=== PATIENT | female | born 1950 | race Caucasian/White ===

== ENCOUNTER → 2020-07-03 11:30 | Outpatient (BNV) | payer MEDICARE, OTHER, SELFPAY | PROVIDERS: PCP Nurse Practitioner Family; Visit Provider Internal Medicine Medical Oncology | DX: C50.212 Malignant neoplasm of upper-inner quadrant of left female breast (principal); D69.1 Qualitative platelet defects | CPT/HCPCS: 99213; 99214 ==

== ENCOUNTER 2020-11-23 11:41 | Outpatient (REF) | payer MEDICARE, OTHER, SELFPAY ==
[2020-11-27 13:46] LABS: CA 27.29 53 U/mL (<38)
== END 2020-11-23 11:42 | disposition home or self-care (01) ==
LOC: HO.LAB 11:41
PROVIDERS: PCP Nurse Practitioner Family; Visit Provider Internal Medicine Medical Oncology
DX: C50.919 Malignant neoplasm of unspecified site of unspecified female breast (principal)
CPT/HCPCS: 36415; 86300

== ENCOUNTER 2020-12-18 07:59 | Outpatient (REF) | payer MEDICARE, SELFPAY ==
--- NOTE | ~2020-12-18 | PE_ITS ---
EXAMINATION: Fluorine-18 FDG PET/CT Scan CLINICAL INDICATION: Subsequent treatment management. Restaging following prior lumpectomy after diagnosis of left breast cancer April,. PROCEDURE: 66 minutes following the intravenous administration of 15.5 mCi of fluorine 18 FDG, images from the base of the skull to the mid thighs were obtained using a combined PET/CT scanner with CT scan based attenuation correction. No oral contrast was administered. No intravenous contrast was administered. Transverse, coronal, sagittal, and volume reconstruction projections were obtained. The patient's blood glucose as determined by a finger stick, was 98 mg/dl immediately prior to injection. Total CT exam dose-length product 868.58 mGy-cm * These CT images were obtained using dose optimization techniques as appropriate, variously including the following: Automated exposure control * Adjustment of mA and/or kV according to patient size (this includes techniques or standardized protocols for targeted exams where dose is matched to indication/reason for exam; i.e. extremities or head) * Use of iterative reconstruction technique COMPARISON: No relevant prior imaging studies are available for comparison. FINDINGS: (Slice numbers described in this report are numbered superiorly to inferiorly with slice #1 in the head) NECK AND VISUALIZED HEAD: No foci of abnormal FDG activity are noted. The distribution of FDG activity is physiological. There is no cervical lymphadenopathy. There is a 0.4 cm hypodense left thyroid nodule, slice 42/267. A second 0.3 cm hypodense nodule is probably present, but less well delineated in the right thyroid lobe, slice 47/267. These are too small to be characterized on the FDG PET images. THORAX: No foci of abnormal FDG activity are present in the chest. A 0.6 cm right middle lobe nodule, slice 104/349 and a 0.7 cm right lower lobe nodule are noted, both too small to be characterized on the FDG PET images. No additional pulmonary nodules are visualized. There is no pleural or pericardial fluid, or pneumothorax. There is no mediastinal, supraclavicular, or axillary lymphadenopathy. ABDOMEN AND PELVIS: No foci of abnormal FDG activity are present in the abdomen or pelvis. There is mild diffuse FDG activity present throughout the gastrointestinal tract without a suspicious focal component. There is diverticulosis without evidence of diverticulitis. The hollow viscera are otherwise unremarkable. The liver and spleen are unremarkable. The gallbladder has been resected and there are metallic surgical clips in the gallbladder bed. There is a hypodense cyst laterally in the lower pole of the left kidney and this is markedly FDG photopenic. The kidneys are otherwise unremarkable. The adrenal glands and pancreas are unremarkable. The pelvic organs are unremarkable. There is no retroperitoneal, mesenteric, pelvic or inguinal lymphadenopathy. MUSCULOSKELETAL: There is mild diffuse FDG activity in both shoulders, likely arthritic in etiology. There is mildly increased activity in the left posterior elements at L5-S1, probably due to facet arthropathy. There are mild degenerative changes in the spine but no suspicious sclerotic or lytic lesions are visualized. VASCULAR: There are dense calcifications in the region of the aortic valve. No other significant vascular abnormalities are noted. PET/PET CT fusion skull to thigh IMPRESSION: 1. Two subcentimeter pulmonary nodules are noted as described above. These are too small to be characterized on the FDG PET images. Correlation with a diagnostic CT scan of the chest is recommended. 2. Two small subcentimeter hypodense thyroid nodules are visualized comments described above. These are too small to be characterized on the FDG PET images, and because of their small size probably do not require further follow-up. 3. No additional abnormalities suspicious for metastatic or other malignant lesions are noted.
== END 2020-12-18 08:00 | disposition home or self-care (01) ==
LOC: HO.PET 07:59
PROVIDERS: PCP Nurse Practitioner Family; Visit Provider Internal Medicine Medical Oncology
DX: Z13.89 Encounter for screening for other disorder (principal)

== ENCOUNTER 2021-03-02 09:59 | Outpatient (REF) | payer MEDICARE, SELFPAY ==
--- NOTE | ~2021-03-02 | CT_ITS ---
EXAMINATION: CT CHEST WITHOUT CONTRAST CLINICAL INFORMATION: Pulmonary nodule follow-up. History of breast cancer. COMPARISON: Previous chest x-ray December [address] November 2020 TECHNIQUE: Multidetector volumetric CT imaging of the chest was done. Axial MIP volume rendering provided. Sagittal and coronal reformatted images were obtained. This CT examination was performed using dose optimization techniques as appropriate, variously including the following: *Automated exposure control *Adjustment of mA and/or kV according to patient size (this includes techniques or standardized protocols for targeted exams where dose is matched to indication/reason for exam; i.e. extremities or head) *Use of iterative reconstruction technique DLP: 185 mGy-cm FINDINGS: CHIEF DIGITAL MEDIA OFFICER: Unremarkable LUNGS: There is a 2 mm peripheral right upper lobe not nodule axial image 154 series 7 that is calcified. There is a 2 mm peripheral right upper lobe noncalcified nodule axial image 155 series 7 . There is a 5 mm right middle lobe noncalcified nodule axial image 319 series 7. This is stable from the previous PET/CT scan. No other pulmonary nodule is seen. MEDIASTINUM: The thoracic aorta is upper normal in size. The ascending thoracic aorta measures 4 cm. There is significant aortic valve calcification. There is no coronary artery calcification. The heart does not appear enlarged. There is no pericardial effusion. There are no enlarged hilar or mediastinal lymph nodes. The visualized thyroid gland is unremarkable. PLEURA: There is no pleural effusion. No pleural mass or thickening. AXILLA: No chest wall mass or enlarged axillary lymph nodes are seen. UPPER ABDOMEN: The gallbladder has been removed. OSSEOUS STRUCTURES: There are degenerative changes of the spine. CT/CT chest wo con IMPRESSION: Stable 5 mm right middle lobe pulmonary nodule. No right lower lobe nodule seen. Two 2 mm right upper lobe nodules, one of which is calcified. Significant aortic valve calcification. Upper normal-size ascending thoracic aorta. Correlation with clinical exam to exclude aortic stenosis recommended. Fleischner guidelines were followed.
== END 2021-03-02 10:00 | disposition home or self-care (01) ==
LOC: HO.CT 09:59
PROVIDERS: Visit Provider Nurse Practitioner Family
DX: R91.1 Solitary pulmonary nodule (principal)
CPT/HCPCS: 71250

== ENCOUNTER 2021-12-16 15:07 | Outpatient (REF) | payer MEDICARE, OTHER, SELFPAY ==
--- NOTE | ~2021-12-16 | US_ITS ---
EXAMINATION: US DIAGNOSTIC ULTRASOUND BREAST, RIGHT CLINICAL INFORMATION: Superficial palpable nodule peripheral upper inner right breast. Personal history contralateral left breast cancer approximately 2 years ago. Prior imaging at outside institution. COMPARISON: None. TECHNIQUE: Ultrasound of the right breast is targeted to the area of clinical concern periphery upper inner right breast. Patient is able to point to the area time of imaging. Grayscale imaging and color Doppler are performed without and with harmonics. FINDINGS: There is a spindle-shaped hypoechoic intradermal lesion at site of palpable concern periphery upper inner right breast measuring approximately 1.0 x 0.3 x 0.9 cm. There is some scant peripheral color flow. No subdermal extension. No edema tracking in soft tissue planes. Results are discussed with the patient at time of visit. The palpable concern corresponds to an intradermal lesion, likely sebaceous or epidermal cyst. US/US breast RT complete IMPRESSION: Intradermal spindle-shaped lesion at site of palpable concern likely sebaceous or epidermal cyst. ASSESSMENT: BI-RADS 2: Benign RECOMMENDATION: 1. Patient should be managed based on the clinical impression. The lesion is amenable to surgical excision particularly if increasing. 2. Otherwise, routine annual screening mammography. This patient's information was entered into a reminder system with a target due date for their next mammogram.
== END 2021-12-16 15:08 | disposition home or self-care (01) ==
LOC: HO.MAMMO 15:07
PROVIDERS: Visit Provider Internal Medicine Medical Oncology
DX: N60.01 Solitary cyst of right breast (principal)
CPT/HCPCS: 76641

== ENCOUNTER 2024-05-18 09:25 | Outpatient (REF) | payer MEDICARE, OTHER, SELFPAY ==
--- OUTSIDE RECORDS SUMMARY | 2024-05-18 09:45 | XMS_ITS | Encounter Summary ---
Author Organization [employer] Address [address] [place] [address] [address] [place] [address] Care Team Providers Care Napkin Band Wrapper Name Role Phone Deepika Serna Primary Care Provider Unavailable Virginia Belcher DO Primary Care Provider [phone] Encounter Details Date Type Department Care Team (Latest Contact Info) Description 04/26/2019 Abstract [facility]VERSION[facility] Dental, Provider, DDS Social History Tobacco Use Types Packs/Day Years Used Date Smoking Tobacco: Never Assessed Comments Unknown Sex and Gender Information Value Date Recorded Sex Assigned at Female 04/24/2022 1:50 PM EST Legal Sex Female 8:32 PM EDT Gender Identity Female 04/24/2022 1:50 PM EST Sexual Orientation Straight 04/24/2022 1: 50 PM EST documented as of this encounter Plan of Treatment Not on file documented as of this encounter Visit Diagnoses Not on filedocumented in this encounter Care Teams Napkin Band Wrapper Relationship Specialty Start Date End Date Deepika Serna FNP PCP - General Family Medicine 04/15/22 12/23/23 Virginia Belcher DO [address] [facility] [place] [address] PCP - General Family Medicine 12/24/23 documented as of this encounter
--- OUTSIDE RECORDS SUMMARY | 2024-05-18 09:45 | XMS_ITS | Encounter Summary ---
Author Organization [employer] Address [address] [place] [address] [address] [place] [address] Care Team Providers Care Security Supervisor Name Role Phone Deepika Serna Primary Care Provider Unavailable Virginia Belcher DO Primary Care Provider [phone] Encounter Details Date Type Department Care Team (Latest Contact Info) Description 08/10/2018 Abstract [facility]VERSION[facility] Dental, Provider, DDS Social [...] on filedocumented in this encounter Care Teams Security Supervisor Relationship Specialty Start Date End Date Deepika Serna FNP PCP - General Family Medicine 04/15/22 12/23/23 Virginia Belcher DO [address] [facility] [place] [address] PCP - General Family Medicine 12/24/23 documented as of this encounter
--- OUTSIDE RECORDS SUMMARY | 2024-05-18 09:45 | XMS_ITS | Encounter Summary ---
Author Organization [employer] Address [address] [place] [address] Care Team Providers Care Process Improvement Specialist Name Role Phone Deepika Serna Primary Care Provider Unavailable Virginia Belcher DO Primary Care Provider [phone] Encounter Details Date Type Department Care Team (Late st Contact Info) Description 05/07/2023 Orders Only [facility] [address] [place] [address] Deepika Serna FNP Social History Tobacco Use Types Packs/Day Years Used Date Smoking Tobacco: Never Smokeless Tobacco: Never Alcohol Use Standard Drinks/Week Comments Never 0 (1 standard drink = 0.6 oz pur e alcohol) Housing Stability Answer Date Recorded What is your housing situation today? I have demetrius farr 01/27/[address] you li ve. Do you have problems with any of the following? I am not sure 01/27/2023 Food Insecurity Answer Date Recorded Within the past 12 months, y ou worried that your food would run out before you got money to buy more: Never True 01/27/2023 Within the past 12 months,th e food you bought just didn't last and you didn't have enough money to get more: Never True Transportation Answer Date Recorded In the past 12 months, has l ack of transportation kept you from medical appts, meetings, work or from getting things needed for daily living? No 01/27/2023 Utilities Answer Date Recorded In the past 12 months, has t he electric, gas, oil or water company threatened to shut off services in your home? No 01/27/2023 Depression Answer Date Recorded Patient Health Questionnaire-2 Score 1 06/23/2022 Education Answer Date Recorded What is the highest level of school you have completed or the highest degree you have received? Master's degree (e.g., MA, MS, David, MEd, [employer], [employer]) 06/23/2022 Comments Unknown Sex and Gender Information Value Date Recorded Sex Assigned at Female 04/24/2022 1:50 PM EST Legal Sex Female 8:32 PM EDT Gender Identity Female 04/24/2022 1:50 PM EST Sexual Orientation Straight 04/24/2022 1: 50 PM EST Occupation Industry Job Start Date Job End Date Retired Not on file Not on file Not on file documented as of this encounter Plan of Treatment Not on file documented as of this encounter Procedures Procedure Name Priority Date/Time Associated Diagnosis Comments BI MAMMOGRAM SCREENING TOMOSYNTHESIS BILATERAL Routine 04/30/2023 documented in this encounter Results * BI Mammogram Screening Tomosynthesis Bilateral (04/30/2023) Anatomical Region Laterality Modality Breast Bilateral Mammography Deepika DECKER IMG BI PROCEDURES Peggy l Result documented in this encounter Visit Diagnoses Not on filedocumented in this encounter Care Teams Process Improvement Specialist Relationship Specialty Start Date End Date Deepika Serna FNP PCP - General Family Medicine 04/15/22 12/23/23 Virginia Belcher DO [address] [place] [id number] PCP - General Family Medicine 12/24/23 documented as of this encounter
--- OUTSIDE RECORDS SUMMARY | 2024-05-18 09:45 | XMS_ITS | Clinical Summary ---
Author Organization [employer] Address [address] [place] [address] [address] [place] [address] Care Team Providers Care School Librarian Name Role Phone Virginia Belcher DO Primary Care Provider [phone] Allergies Active Allergy Reactions Criticality Noted Date Comments Amoxicillin-Pot Clavulanate Low 05/28/2020 Other reaction(s): inflammed organs organomegaly Aspirin Low 07/27/2017 Other reaction(s): platelet dysfunction storage pool disorder Platelet dysfunction Atorvastatin Low 02/26/2022 Other reaction(s): increase lft Molds & Smuts 10/09/2023 Nsaids Low 06/08/2022 Other reaction(s): platelet dysfunction Pollen Extract 10/09/2023 Other Reaction(s): Airborne allergies - trees Simvastatin Low 06/08/2022 Other reaction(s): Myalgias, Sore throat Tramadol Hives,Itching Low 02/27/2017 Other reaction(s): Other (See Comments), skin crawling Bugs crawling on skin sensation Other reaction(s): Other (See Comments) Bugs crawling on skin sensation Medications amitriptyline (Elavil) 25 MG tablet Take one tablet by mouth at bedtime, as needed for insomnia. 03/07/20 22 Active aspirin 81 MG EC tablet Take 81 mg by mouth. 05/21/19 23 Active DULoxetine (Cymbalta) [address] capsule Take 120 mg by mouth at bedtime. 11/19/19 22 Active letrozole (Femara) 2.5 MG chemo tablet Take 2.5 mg by mouth in the morning. 03/25/20 22 Active LORazepam (Ativan) 0.5 MG tablet Take one tablet by mouth three times a day as needed for anxiety or insomnia. 03/25/20 22 Active topiramate (Topamax) 25 MG tablet TAKE 1 1/2 TABLETS BY MOUTH DAILY BEFORE BED 01/15/20 22 Active gabapentin (Neurontin) 600 MG tablet TAKE 1 TABLET BY MOUTH BEFORE BED 05/01/19 23 Active Calcium Carb-Cholecalcifer ol (CALTRATE 600+D3 PO) Take 2 tablets by mouth 2 times daily. Active albuterol 108 (90 Base) MCG/ACT inhalerIndications :Acute bronchospasm inhale 2 PUFFS every 4 TO 6 hours needed directed 8.5 g 1 11/26/19 23 Active chlorhexidine (Peridex) 0.12 % solution fill cup to1/2 OUNCE line SWISH IN MOUTH FOR 30 seconds THEN spit OUT, USE TWICE daily AFTER breakfast AND AT bedtime 473 mL 3 12/12/19 23 Active desmopressin (DDAVP) 0.01 % solutionIndication s:Platelet dysfunction (CMS/HCC),Antiplat elet or antithrombotic long-term use,Bleeding from the nose Administer 1 spray (10 mcg) into one nostril 2 times daily. As needed for acute nose bleeds. 5 mL 12 05/22/19 24 025 Active triamcinolone (Kenalog) 0.5 % ointment Apply THIN FILM topically TO AFFECTED AREA 2 (two) times a week. 08/05/19 24 Active levothyroxine (Synthroid, Levoxyl) 25 MCG tablet TAKE 1 TABLET BY MOUTH DAILY IN THE MORNING ON AN EMPTY stomach 90 tablet 2 11/27/19 24 Active amoxicillin (Amoxil) 500 MG capsule 11/11/19 24 Active meloxicam (Mobic) 15 MG tabletIndications: Cervicalgia Take 1 tablet (15 mg) by mouth in the morning. Take with food. 28 tablet 5 02/10/20 24 Active atenolol (Tenormin) 25 MG tablet TAKE 1 TABLET BY MOUTH ONCE DAILY 90 tablet 3 02/12/20 24 Active esomeprazole (NexIUM) [address] capsule Take 40 mg by mouth before breakfast. 12/24/19 22 Active Prasterone (Intrarosa) 6.5 MG insert Insert 1 suppository into the vagina Once per day. Active rosuvastatin (Crestor) 10 MG tabletIndications: H/O prosthetic aortic valve replacement,Aneury sm of ascending aorta without rupture (CMS/HCC) Take 2 tablets (20 mg) by mouth Once per day. Per sheepskin pickler 180 tablet 3 03/10/20 24 Active butalbital-acetami nophen-caffeine 50-325-40 MG tabletIndications: Migraine with aura and without status migrainosus, not intractable TAKE 1 TABLET BY MOUTH AT ONSET OF HEADACHE, MAY REPEAT IN 4 hours. max OF 4 TABS IN 24 hours as needed 20 tablet 2 03/10/20 24 Active Active Problems Problem Noted Date Diagnosed Date Family hx of colon cancer 09/23/2023 Overview (09/23/2023): Last colonoscopy 2020 - only findings of hemorrhoids and diverticulosis. Given strong family hx in multiple 2nd cousins, Needs to have repeat colonoscopy 03/2025 Aneurysm of ascending aorta without rupture 05/29 Overview (06/24/2023): 41 mm AAA seen on echo from 05/2023. Recommend f/u UL 05/2024. S/P TAVR (transcatheter aortic valve replacement ) 05/20/2022 Overview (09/23/2023): Hx of Dyspnea on exertion w/u w/ echo revealed dx with severe aortic stenosis. S/p aortic valve replacement (TAVR) 05/20/22 Treated with Plavix x 12 months. Next echo will be 05/2024 Assessment & Plan (10/15/2022 10:54 AM EDT): Apr 2022- Underwent TAVR for severe aortic stenosis with Dr. Elie Huizar Carpal tunnel syndrome 04/04/2022 Cervicalgia 04/04/2022 Chronic fatigue 04/04/2022 Chronic sinusitis of both maxillary sinuses 08/2022 Essential hypertension 04/04/2022 Assessment & Plan (10/15/2022 10:58 AM EDT): Continue current medication; stable. BP: 122/72 Gastro-esophageal reflux disease without esophag itis 04/04/2022 Hyperlipidemia 04/04/2022 Hypothyroidism 04/04/2022 Lumbago with sciatica, unspecified side 04/04/19 23 Major depressive disorder 04/04/2022 Assessment & Plan (10/15/2022 10:57 AM EDT): Continue to follow with her current therapist. She reports that her medications are working well, denies any SI/HI. Migraine with aura 04/04/2022 Overview (09/23/2023): Managed with Fioricet once a week. NAFLD (nonalcoholic fatty liver disease) 023 Primary osteoarthritis involving multiple joints 04/04/2022 Pulmonary nodule 04/04/2022 Seasonal allergic rhinitis due to pollen 023 Osteopenia of both hips 02/26/2022 Overview (05/29/2022): Last Assessment & Plan: The patient has osteopenia with high FRAX score. I did inform her that she will benefit from antiresorptive medications but we do have to manage primary hyperparathyroidism first. Hyperparathyroidism 02/26/2022 Overview (04/13/2024): S/p parathyroidectomy 3- gland resection Elevated alkaline phosphatase level 02/26/2022 Overview (10/14/2023): Patient has elevated alkaline phosphatase bone specific alkaline phosphatase and GGT levels were in the reference range, serum alkaline phosphatase remain elevated and I suspect that this is due to her calcium levels, hyperparathyroidism, and osteopenia. - upcoming liver UL Invasive ductal carcinoma of left breast 022 Overview (04/13/2024): >>OVERVIEW FOR MALIGNANT NEOPLASM OF LEFT BREAST (CMS/HCC) WRITTEN ON 10/16/2022 7:59 AM BY BRIANNE COLINDRES Hx ductal carcinoma Stage 1 left breast 05/3020 S/p Lumpectomy with Dr. Echevarria Sees oncologist at [facility] Tika will continue with her own breast surveillance, follow up with oncologist and screening mammograms. Platelet dysfunction 08/19/2018 Overview (10/16/2022): Followed by heme/oncology. Atrophic vaginitis 07/28/2017 Overview (05/29/2022): Last Assessment & Plan: Tika will continue with new regimen of coconut oil, less aggressive washing and less/no use of soap. She will continue to experiment with timing/frequency of vaginal estrogen, balancing using only what she feels is needed with understanding that random use is not typically effective. Her current plan is to use perhaps once a week. She does not need refills at this time. Assessment & Plan (10/15/2022 10:59 AM EDT): Tika continues to use coconut oil, less washing and occasional use of vaginal estrogen. She reports she will continue on this regimen. Resolved Problems Problem Noted Date Diagnosed Date Resolved Date Acute cystitis with hematuria 06/03/2023 04/13/2024 Assessment & Plan (06/03/2023 4:54 PM EST): Patient presenting with frequency, urgency, dysuria and mild lower abdominal pain. Symptoms started 3 days ago. She has been drinking a good amount of water and tried her cream for atrophic vaginitis since symptoms present similarly for her, but this did not provide relief. Her last UTI was a few years ago but she does note that it felt similar to this episode. Mild discomfort with palpation of the lower abdomen. No CVA tenderness or fever. Urine dipstick showed 3+ leukocytes and blood, negative for nitrites. Urine is being sent out for culture. Sending Keflex 500 mg BID for 7 days. She understands to take the full course of antibiotics. Advised if any adverse reactions occur to stop and call the office or go to the ER for any signs of anaphylaxis. Aortic stenosis, severe 04/04/202208/29 Serum calcium elevated 04/04/202203/10 Encounters Date Type Department Care Team Description 03/25/[address] [address] Rebecca Goss RN 03/21/[address] [place] [address] Virginia Belcher DO Labs Only 03/18/2024 10:20 AM EST Office Visit [facility] [address] [place] [address] Kassie Pena FNP Hyperparathyroidism (CMS/HCC) (Primary Dx); Urinary frequency; Acquired hypothyroidism; Immunocompromised (CMS/HCC) 03/18/2024 Travel 03/10/2024 8:45 AM EST Office Visit [facility] MED[facility] [address] [place] [address] Virginia Belcher, Migraine with aura and without status migrainosus, not intractable (Primary Dx); H/O prosthetic aortic valve replacement; Aneurysm of ascending aorta without rupture (CMS/HCC); Immunization due; Invasive ductal carcinoma of left breast (CMS/HCC); Hyperparathyroidism (CMS/HCC); Platelet dysfunction (CMS/HCC); Atrophic vaginitis; Hypothyroidism, unspecified type; Essential hypertension 03/10/2024 Travel from Last 3 Months Immunizations Name Administration Dates Next Due Hep B, adult 09/17/2020,04/17/2020,03/20/2020 Influenza High-dose Quadriva lent Preservative Free 03/02/2023,12/13/2019 Influenza injectable quadriv alent preservative free 01/12/2015 Influenza, High Dose Seasona l, Preservative Free 12/17/2020,01/10/2019,12/31/2017,02/02 Influenza, IIV3, injectable 12/17/2020,0 12/13/2019,01/10/2019,12/31,02/02/2017,01/15/2016,01/12/2015 ,01/24/2014,01/26/2013 Influenza, Split (incl. ajay fied surface antigen) 01/29/2012,01/23/2011 Influenza, trivalent, adjuvanted 12/25/2023 Moderna Covid-19 Vaccine 12+ 02/10/2024, 03/02/2023,08/08/2021,08/08,03/07/2021,03/07/2021,06/08/2020 ,06/08/2020,05/11/2020,05/11/2020 Novel [id number], all formulations 03/12/2009 Pfizer Covid-19 Vaccine 12+ Bivalent 04/11/2022 Pneumococcal Conjugate PCV 20 03/18/2023 Pneumococcal Polysaccharide PPSV23 10/07/2017,,03/06/2000 RSV Adjuvant 03/18/2023 TD (adult), 2 Lf tetanus tox oid, preservative free, adsorbed 01/24/2005 Tdap 03/10/2024,01/29/2012 Zoster, Recombinant 12/31/2017,10/07/2017 Zoster, live 06/08/2009 Family History Medical History Relation Name Comments Cataracts Father Hyperlipidemia Father BPH-94 yr Macular degeneration Father Melanoma Father Cataracts Mother Hypothyroidism Mother Macular degeneration Mother Osteoarthritis Mother Osteoporosis Mother Osteoporotic fracture Mother Relation Name Status Comments Father Mother Social History Tobacco Use Types Packs/Day Years Used Date Smoking Tobacco: Never Smokeless Tobacco: Never Tobacco Cessation:Counseling Given: Not Answered Alcohol Use Standard Drinks/Week Comments Yes 0 (1 standard drink = 0.6 oz pur e alcohol) occationally Depression Answer Date Recorded Patient Health Questionnaire-9 Score 0 10/13/2023 Patient Health Questionnaire-9 Score 0 10/13/2023 Last PHQ-9: Questionnaire Data 1 0 10/13/2023 Housing Stability Answer Date Recorded What is your housing situation today? I have demetrius farr 09/23/[address] you li ve. Do you have problems with any of the following? None of the above 09/23/2023 Food Insecurity Answer Date Recorded Within the past 12 months, y ou worried that your food would run out before you got money to buy more: Never True 09/23/2023 Within the past 12 months,th e food you bought just didn't last and you didn't have enough money to get more: Never True Transportation Answer Date Recorded In the past 12 months, has l ack of transportation kept you from medical appts, meetings, work or from getting things needed for daily living? No 09/23/2023 Utilities Answer Date Recorded In the past 12 months, has t he electric, gas, oil or water company threatened to shut off services in your home? No 09/23/2023 Depression Answer Date Recorded Patient Health Questionnaire-2 Score 0 10/13/2023 Internet Access Answer Date Recorded Internet Access Q1 Yes 11/27/2023 Internet Access Q2 Not on file 11/27/2023 Education Answer Date Recorded What is the highest level of school you have completed or the highest degree you have received? Master's degree (e.g., MA, MS, David, MEd, ACUPRESSURIST, VILLA) 06/23/2022 Comments Unknown Sex and Gender Information Value Date Recorded Sex Assigned at Female 04/24/2022 1:50 PM EST Legal Sex Female 8:32 PM EDT Gender Identity Female 04/24/2022 1:50 PM EST Sexual Orientation Straight 04/24/2022 1: 50 PM EST Occupation Industry Job Start Date Job End Date Retired Not on file Not on file Not on file Last Filed Vital Signs Vital Sign Reading Time Taken Comments Blood Pressure 94/60 03/18/2024 10:24 AM EST Pulse 76 03/18/2024 10:24 AM EST Temperature 36.6 ??C (97.8 ??F) 03/18/2024 10:[address] Respiratory Rate 16 03/18/2024 10:24 AM EST Oxygen Saturation 98% 03/10/2024 8:50 AM EST Inhaled Oxygen Concentration - - Weight 72.6 kg (160 lb) 03/18/2024 10:24 AM EST Height 157.5 cm (5' 2 ) 03/18/2024 10:24 AM EST Body Mass Index 29.26 03/18/2024 10:24 AM EST Plan of Treatment Health Maintenance Due Date Last Done Comments CT Colonography 1949 FIT DNA/Cologuard 1949 FIT 1949 FOBT 1950 Sigmoidoscopy 1949 Alcohol/Substance Use Screening 1961 Hepatitis A Vaccines (1 of 2 - Risk 2-dose series) 1968 COVID-19 Vaccine ( season) 2024 02/10/2024, 03/02/2023, 04/11/2022, Additional history exists SDOH Screening 09/22/2024 09/23/2023 Depression Screening 10/12/2024 10/13/2023, 07/16/20 24 Tobacco Screening 03/18/2025 03/18/2024 Lipid Panel 10/22/2028 10/23/2023, 09/27, 09/25/2020, Additional history exists Colonoscopy 04/13/2030 04/13/2020, 03/30, 02/20/2015, Additional history exists Colorectal Cancer Screening 04/13/2030 DTaP/Tdap/Td Vaccines (3 - Td or Tdap) 03/10/2034 03/10/2024, 01/29/2012, 01/24/2005 Hepatitis C Screening Completed 08/04/2016 Zoster Vaccines Completed 12/31/2017, 09/27, 06/08/2009 Hepatitis B Vaccines Completed 09/17/2020, 04/17/2020, 03/20/2020 Pneumococcal Vaccine: 50+ Years Completed 03/18/2023, 10/07/2017, 01/29/2012, Additional history exists RSV Patients and Patients Aged 60 years or older Completed 03/18/2023 Influenza Vaccine Completed 12/25/2023, , 12/17/2020, Additional history exists HIB Vaccines Aged Out No longer eligi ble based on patient's age to complete this topic HPV Vaccines Aged Out No longer eligi ble based on patient's age to complete this topic IPV Vaccines Aged Out No longer eligi ble based on patient's age to complete this topic Meningococcal Vaccine Aged Out No tigre vincent eligible based on patient's age to complete this topic RSV under 20 months Aged Out No longe r eligible based on patient's age to complete this topic Rotavirus Vaccines Aged Out No longer eligible based on patient's age to complete this topic Procedures Procedure Name Priority Date/Time Associated Diagnosis Comments PTH, INTACT WITHOUT CALCIUM Routine 03/18/2024 10:58 AM EST Hyperparathyroidism (CMS/HCC) TSH W/REFLEX TO FT4 Routine 03/18/2024 1 0:58 AM EST Acquired hypothyroidism COMPREHENSIVE METABOLIC PANEL Routine 03/18/2024 10:58 AM EST Immunocompromised (CMS/HCC) CBC WITH AUTO DIFFERENTIAL Routine 03/18/2024 10:58 AM EST Immunocompromised (CMS/HCC) POCT URINALYSIS DIPSTICK Routine 03/18/2024 10:43 AM EST Urinary frequency VAGINITIS (VG) WITH SHIRLEY (SIX SPECIES), NUSWAB Routine 03/18/2024 10:30 AM EST Urinary frequency LIPID PANEL, STANDARD Routine 10/23/2023 8:45 AM EDT Hypothyroidism, unspecified type HM COLONOSCOPY Routine 04/13/2020 12:34 PM EST HEPATITIS C ANTIBODY (EXTERNAL RESULTS ONLY) Routine 08/04/2016 from Last 3 Months or Most Recently Relevant to Health Maintenance Results * TSH with Reflex to Free T4 [[id number]] (03/18/2024 10:58 AM EST) TSH 2.740 0.450 - 4.500 uIU/mL [facility] 1 Blood Venous blood specimen / Unknown 03/18/2024 10:58 AM EST 03/18/2024 Narrative [facility] 1 - 03/19/2024 6:05 AM EST Performed at: ??01 - [facility] [address] ??[id number] Data Capture Clerk: Oneyda Hess MD, Phone: ??[phone] Kassie OWENP LAB BLOOD ORDERABLES Peggy l Result [facility] 1 * CBC auto differential (03/18/2024 10:58 AM EST) White Blood Cell Count 9.0 3.4 - 10.8 x10E3/uL [facility] 1 Red Blood Cell Count 4.59 3.77 - 5.28 x10E6/uL [facility] 1 Hemoglobin 13.9 11.1 - 15.9 g/dL [facility] 1 Hematocrit 41.2 34.0 - 46.6 % [facility] 1 MCV 90 79 - 97 fL [facility] 1 MCH 30.3 26.6 - 33.0 pg [facility] 1 MCHC 33.7 31.5 - 35.7 g/dL [facility] 1 RDW 12.5 11.7 - 15.4 % [facility] 1 Platelet Count 278 150 - 450 x10E3/uL [facility] 1 Neutrophils 70 Not Estab. % [facility] 1 Lymphocytes 19 Not Estab. % [facility] 1 Monocytes 5 Not Estab. % [facility] 1 Eosinophils 4 Not Estab. % [facility] 1 Basophils 1 Not Estab. % [facility] 1 Absolute Neutrophils 6.4 1.4 - 7.0 x10E3/uL [facility] 1 Absolute Lymphocytes 1.7 0.7 - 3.1 x10E3/uL [facility] 1 Absolute Monocytes 0.5 0.1 - 0.9 x10E3/uL [facility] 1 Absolute Eosinophils 0.3 0.0 - 0.4 x10E3/uL [facility] 1 Absolute Basophils 0.1 0.0 - 0.2 x10E3/uL [facility] 1 Immature Granulocytes 1 Not Estab. % [facility] 1 Immature Grans (Abs) 0.1 0.0 - 0.1 x10E3/uL [facility] 1 Blood Venous blood specimen / Unknown 03/18/2024 10:58 AM EST 03/18/2024 Narrative [facility] 1 - 03/19/2024 12:05 AM EST Performed at: ??01 - [facility] [address] ??[id number] Data Capture Clerk: Oneyda Hess MD, Phone: ??[phone] Kassie Pena [employer] LAB BLOOD ORDERABLES Peggy l Result [facility] * PTH, intact (03/18/2024 10:58 AM EST) Parathyroid Hormone, Intact 16 15 - 65 pg/mL [facility] 1 Blood Venous blood specimen / Unknown 03/18/2024 10:58 AM EST 03/18/2024 Narrative [facility] 1 - 03/19/2024 8:06 AM EST Performed at: ??01 - [facility] [address] [place], [place] ??[id number] Data Capture Clerk: Oneyda Hess MD, Phone: ??[phone] Kassie Pena [facility] LAB BLOOD ORDERABLES Peggy lara Result [facility] * (ABNORMAL) Comprehensive metabolic panel (03/18/2024 10:58 AM EST) Glucose 118(H) 70 - 99 mg/dL [facility] 1 Urea Nitrogen (BUN) 17 8 - 27 mg/dL [facility] 1 Creatinine, Serum 0.84 0.57 - 1.00 mg/dL [facility] 1 eGFR 73 >59 mL/min/1.7 3 [facility] 1 BUN/Creatinine Ratio 20 12 - 28 [facility] 1 Sodium 138 134 - 144 mmol/L [facility] 1 Potassium 3.9 3.5 - 5.2 mmol/L [facility] 1 Chloride 104 96 - 106 mmol/L [facility] 1 Anion Gap 15.0 10.0 - 18.0 mmol/L [facility] 1 Carbon Dioxide 19(L) 20 - 29 mmol/L [facility] 1 Calcium 8.7 8.7 - 10.3 mg/dL [facility] 1 Protein, Total 7.1 6.0 - 8.5 g/dL [facility] 1 Albumin 4.1 3.8 - 4.8 g/dL [facility] 1 Globulin 3.0 1.5 - 4.5 g/dL [facility] 1 Bilirubin, Total <0.2 0.0 - 1.2 mg/dL [facility] 1 Alkaline Phosphatase 155(H) 44 - 121 IU/L [facility] 1 AST 18 0 - 40 IU/L [facility] 1 ALT 16 0 - 32 IU/L [facility] 1 Blood Venous blood specimen / Unknown 03/18/2024 10:58 AM EST 03/18/2024 Narrative [facility] 1 - 03/19/2024 6:05 AM EST Performed at: ??01 - [facility] [address] [place], [place] ??[id number] Data Capture Clerk: Oneyda Hess MD, Phone: ??[phone] [facility] LAB BLOOD ORDERABLES Peggy lara Result [facility] * POCT urinalysis dipstick manually resulted (03/18/2024 10:43 AM EST) Color, UA Yellow Clarity, UA Clear Glucose, UA Negative Bilirubin, UA Negative Ketones, UA Negative Spec Grav, UA 1.010 Blood, UA Negative Negative, None Detected pH, UA 6.0 Protein, UA Negative Urobilinogen, UA 0.2 Leukocytes, UA Negative Negative, Rare, Trace Nitrite, UA Negative Negative, None Detected Urine 03/18/2024 10:4 3 AM EST [facility] POINT OF CARE TEST ENTER/ EDIT ORDERABLES Final Result * Vaginitis (VG) With Shirley (Six Species), NuSwab (03/18/2024 10:30 AM EST) Atopobium vaginae Low - 0 Score [facility] 1 BVAB 2 Low - 0 Score [facility] 1 Megasphaera 1 Low - 0 Score [facility] 1 Comment: Calculate total score by adding the 3 individual bacterial vaginosis (BV) marker scores together. ??Total score is interpreted as follows: Total score 0-1: Indicates the absence of BV. Total score ?? 2: Indeterminate for BV. Additional clinical ? data should be evaluated to establish a ? diagnosis. Total score 3-6: Indicates the presence of BV. Shirley albicans, DIXON Negative Negative [facility] 1 Shirley glabrata, DIXON Negative Negative [facility] 1 C parapsilosis/trop icalis Negative Negative [facility] 1 Comment:This assay does not differentiate C. tropicalis and C. parapsilosis. Shirley lusitaniae, DIXON Negative Negative [facility] 1 Shirley krusei, DIXON Negative Negative [facility] 1 Trich vag by DIXON Negative Negative [facility] 1 Swab (Vaginal Swab) 03/18/2024 10:30 AM EST 03/18/2024 Comment:Vaginal Swab Delay r e Narrative [facility] 1 - 03/23/2024 6:05 PM EST Test(s) 036034- ?Atopobium vaginae; 526958- ?BVAB 2; 521883- ?Megasphaera 1 was developed and its performance characteristics determined by [facility]. It has not been cleared or approved by the Food and Drug Administration. Test(s) 627907-Vskaetj albicans, DIXON; 986277-Jwjdkpo glabrata, DIXON; 593877-D parapsilosis/tropicalis; 929605-Zmxxwbw lusitaniae, DIXON; 106264-Raznwks krusei, DIXON was developed and its performance characteristics determined by [facility]. It has not been cleared or approved by the Food and Drug Administration. Performed at: ??01 - [facility] [address] ??[id number] Data Capture Clerk: Oneyda Hess MD, Phone: ??[phone] Kassie Pena [facility] LAB CYTOLOGY ORDERABLES F inal Result [facility] * (ABNORMAL) Lipid Panel, Standard (10/23/2023 8:45 AM EDT) Cholesterol, Total 179 100 - 199 mg/dL [facility] 1 Triglycerides 281(H) 0 - 149 mg/dL [facility] 1 HDL Cholesterol 41 >39 mg/dL [facility] 1 VLDL Cholesterol Davis 47(H) 5 - 40 mg/dL [facility] 1 LDL Chol Calc (NIH) 91 0 - 99 mg/dL [facility] 1 Blood Venous blood specimen / Unknown 10/23/2023 8:45 AM EDT 10/23/2023 Narrative [facility] 1 - 10/24/2023 12:05 AM EDT Performed at: ??01 - [facility] [address] ??[id number] Data Capture Clerk: Oneyda Hess MD, Phone: ??[phone] Deepika Serna [employer] LAB BLOOD ORDERABLES F inal Result [facility] 1 * (ABNORMAL) Hm Colonoscopy (04/13/2020 12:34 PM EST) Colonoscopy Abnormal(A ) Normal Impressions Celia Jordan - 04/13/2020 12:34 PM EST 5 year recall Historical Provider HEALTH MAINTENANCE Final Result * Hepatitis C Antibody (08/04/2016) Hepatitis C Antibody Nonreactive Blood 08/04/2016 Historical Provider POINT OF CARE TEST ENTER/ EDIT ORDERABLES Final Result from Last 3 Months or Most Recently Relevant to Health Maintenance Insurance MEDICARE [employer] * Guarantor: Tika Lopez Account Type Relation to Patient Date of Phone Billing Address Dental [employer] Libr[employer] Relationship Specialty Start Date End Date Virginia Belcher DO [address] [place] [address] [place] [id number] PCP - General Family Medicine 12/24/23
--- OUTSIDE RECORDS SUMMARY | 2024-05-18 09:45 | XMS_ITS | Continuity of Care Document ---
Author Organization [facility] Address [address], [address] [place] [address]- Care Team Providers Care Cheesemaker Name Role Phone Virginia Belcher DO Primary Care Physician Unav ailable Encounter [facility] Date(s): 04/14/24 - 05/14/24 [facility] Phill Khans [facility] [address], [address] [place] [address]- Encounter Type: Triage Allergies, Adverse Reactions, Alerts Substance Criticality Severity Reaction Reaction Severity Status aspirin 1 platelet dysfunction Active simvastatin 2 Unable to assess criticality Persistent Mild Unknown Active Augmentin Made her organ s swell Active Lipitor unsure of reaction Active Mildew Active Mold Active Pet Dander Active Other Environmental Allergy Airborne allergies - trees Active traMADol Low criticality Mild feels like skin is crawling Active 1storage pool disorder 2Outside Source Comment: Other reaction(s): Myalgias, Sore throat Immunizations Given and Recorded Vaccine Date Status Refusal Reason [id number] 12y+ bivalent booster vax 04/11/22 Recorded SARS-CoV-2 (COVID-19) mRNA-1273 vaccine 08/08/21 R ecorded SARS-CoV-2 (COVID-19) mRNA-1273 vaccine 03/07/21 R ecorded SARS-CoV-2 (COVID-19) mRNA-1273 vaccine 06/08/20 R ecorded SARS-CoV-2 (COVID-19) mRNA-1273 vaccine 05/11/20 R ecorded influenza virus vaccine, inactivated 12/17/20 Joel rded influenza virus vaccine, inactivated 12/13/19 Joel rded influenza virus vaccine, inactivated 01/10/19 Joel rded influenza virus vaccine, inactivated 12/31/17 Joel rded influenza virus vaccine, inactivated 02/02/17 Joel rded influenza virus vaccine, inactivated 01/12/15 Joel rded hepatitis B adult vaccine 09/17/20 Recorded hepatitis B adult vaccine 04/17/20 Recorded hepatitis B adult vaccine 03/20/20 Recorded zoster vaccine, inactivated 12/31/17 Recorded zoster vaccine, inactivated 10/07/17 Recorded pneumococcal 23-valent vaccine 10/07/17 Recorded Medications acetaminophen/butalbital/caffeine 325 mg-50 mg-40 mg oral tablet 15 each, 0 Refill(s), TAKE 1 TABLET BY MOUTH AT ONSET OF HEADACHE, MAY REPEAT IN 4 hours. max OF 4 TABS IN 24 hours as needed, 0 Refills, 09/11/22 1:23:00 PM EDT, Partial fill upon patient request if the prescription is for a schedule II opioid drug. Start Date: 09/11/22 Status: Ordered Repeat number: 1 Albuterol (Eqv-ProAir HFA) 90 mcg/inh inhalation aerosol inhale 2 PUFFS every 4 TO 6 hours needed directed Start Date: 12/23/21 Status: Ordered Repeat number: 1 amitrip/baclo/bill 2/2/2% ointment amitrip/baclo/bill 2/2/2% ointment, Refills 0, Maintenance, 04/22/24 9:24:00 AM EST, Supply Start Date: 04/22/24 Status: Ordered Repeat number: 1 amitriptyline 25 mg oral tablet Take one tablet by mouth at bedtime, as needed for insomnia. Start Date: 12/23/21 Status: Ordered Repeat number: 1 atenolol 25 mg oral tablet 25 mg, 1, tablet, Daily at bedtime Start Date: 12/23/21 Status: Ordered Repeat number: 1 calcium (as carbonate)-vitamin D 600 mg-800 intl units oral tablet 1 tablet, By Mouth, 2 times a day, 0 Refills, Maintenance, 09/10/23 10:54:00 AM EDT, Partial fill upon patient request if the prescription is for a schedule II opioid drug. Start Date: 09/10/23 Status: Ordered Repeat number: 1 chlorhexidine topical 0.12% liquid 473 mL, 0 Refill(s), fill cup to1/2 OUNCE line SWISH IN MOUTH FOR 30 seconds THEN spit OUT, USE TWICE daily AFTER breakfast AND AT bedtime, 0 Refills, 09/11/22 1:23:00 PM EDT, Partial fill upon patient request if the prescription is for a schedule II opioid drug. Start Date: 09/11/22 Status: Ordered Repeat number: 1 duloxetine 60 mg oral enteric coated capsule Take two capsules by mouth at bedtime Start Date: 12/23/21 Status: Ordered Repeat number: 1 estradiol 0.1 mg/g vaginal cream 0 Refills, Maintenance, 04/22/24 9:23:00 AM EST, Partial fill upon patient request if the prescription is for a schedule II opioid drug. Start Date: 04/22/24 Status: Ordered Repeat number: 1 gabapentin 600 mg oral tablet TAKE 1 TABLET BY MOUTH BEFORE BED Start Date: 12/23/21 Status: Ordered Repeat number: 1 [place] 6.5 mg vaginal insert Vaginally, Daily at bedtime, 0 Refills, Maintenance, 04/22/24 9:22:00 AM EST, Partial fill upon patient request if the prescription is for a schedule II opioid drug. Start Date: 04/22/24 Status: Ordered Repeat number: 1 letrozole 2.5 mg oral tablet TAKE 1 TABLET BY MOUTH DAILY Start Date: 12/23/21 Status: Ordered Repeat number: 1 levothyroxine 0.025 mg oral tablet TAKE 1 TABLET BY MOUTH DAILY IN THE MORNING ON AN EMPTY stomach Start Date: 12/23/21 Status: Ordered Repeat number: 1 LORazepam 0.5 mg oral tablet Take one tablet by mouth three times a day as needed for anxiety or insomnia. Start Date: 12/23/21 Status: Ordered Repeat number: 1 Nexium 40 mg oral enteric coated capsule 1 capsule = 40 mg, By Mouth, Daily, # 90 capsule, 0 Refills, Maintenance, 12/23/21 9:00:00 AM EDT, EC Capsule, Partial fill upon patient request if the prescription is for a schedule II opioid drug. 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 Hypothyroidism Confirmed Active History of left Breast cancer Confirmed Active Platelet function defect Confirmed Active Social History Social History Type Response Smoking Status Never (less than 100 in lifetime) entered on: 09/10/23 Sex Sex Representation Female (finding) Patient Care team information Care Team Personnel Name: Nicole Santana Position: [facility] Outreach Member Role: Lifetime Consulting Physician Name: Virginia Belcher DO Position: Reference Physician Member Role: PCP Address: [address] [place] [id number]- Name: Katerine Wright RN Position: [facility] ED RN W/OE and Tasks Member Role: Primary Care Nurse Name: Dayana Gore RN Position: [facility] RN Member Role: Primary Care Nurse Care Team Related Persons Name: JODY DIAS Name: ZAYNAB DIAS Insurance Providers Guarantor name: ARMAND DIAS Health Plan Information #: 1 Payer: MEDICARE PART B OUTPT Member Number: NA Policy Number: NA Group Number: NA Health Plan Information #: 2 Payer: I10 MEDICARE SUPPL [id number] Member Number: NA Policy Number: NA Group Number: NA
--- OUTSIDE RECORDS SUMMARY | 2024-05-18 09:45 | XMS_ITS | Encounter Summary ---
Author Organization [employer] Address [address] [place] [address] [address] [place] [address] Care Team Providers Care Concrete Batcher Name Role Phone Deepika Serna Primary Care Provider Unavailable Virginia Belcher DO Primary Care Provider [phone] Encounter Details Date Type Department Care Team (Latest Contact Info) Description 12/15/2019 [facility] Dental, Provider, DDS Social [...] on filedocumented in this encounter Care Teams Concrete Batcher Relationship Specialty Start Date End Date Deepika Serna FNP PCP - General Family Medicine 04/15/22 12/23/23 Virginia Belcher DO [address] [place] [address] PCP - General Family Medicine 12/24/23 documented as of this encounter"
--- OUTSIDE RECORDS SUMMARY | 2024-05-18 09:45 | XMS_ITS | Encounter Summary ---
Author Organization [employer] Address [address] [place] [address] Care Team Providers Care Rip Sawyer Name Role Phone Deepika Serna Primary Care Provider Unavailable Virginia Belcher DO Primary Care Provider Encounter Details Date Type Department Care Team (Late st Contact Info) Description 06/22/2023 Orders Only [facility] [address] [place] [address] Deepika Serna FNP Presence of prosthetic heart valve Social History Tobacco Use Types Packs/Day Years [...] Master's degree (e.g., MA, MS, David, MEd, ROOF TRUSS DETAILER, [place]) 06/23/2022 Comments Unknown Sex and Gender [...] Procedure Name Priority Date/Time Associated Diagnosis Comments AMB REFERRAL TO CARDIOLOGY Routine 06/18/2023 Presence of prosthetic heart valve documented in this encounter Results * Referral to Cardiology (06/18/2023) Deepika DECKER OUTPATIENT REFERRAL OR DERABLES Final Result documented in this encounter Visit Diagnoses Diagnosis Presence of prosthetic heart valve documented in this encounter Care Teams Rip Sawyer Relationship Specialty Start Date End Date Deepika Serna FNP PCP - General Family Medicine 04/15/22 12/23/23 Virginia Belcher DO [address] [place] [id number] PCP - General Family Medicine 12/24/23 documented as of this encounter
--- OUTSIDE RECORDS SUMMARY | 2024-05-18 09:45 | XMS_ITS | Encounter Summary ---
Author Organization [employer] Address [address] [place] [address] Care Team Providers Care Factory Assembler Name Role Phone Deepika Serna Primary Care Provider Unavailable Virginia Belcher DO Primary Care Provider [phone] Encounter Details Date Type Department Care Team (Late st Contact Info) Description 10/21/2023 Orders Only [place] [facility] [address] [place] [address] Deepika Serna FNP Elevated alkaline phosphatase level Social History Tobacco Use Types Packs/Day Years Used Date Smoking Tobacco: Never Smokeless Tobacco: Never Alcohol Use Standard Drinks/Week Comments Yes 0 [...] Recorded Patient Health Questionnaire-2 Score 0 10/13/2023 Education Answer Date Recorded What is the highest level of school you have completed or the highest degree you have received? Master's degree (e.g., MA, MS, David, MEd, PROFESSIONAL SHOPPER, [place]) 06/23/2022 Comments Unknown Sex and Gender [...] Procedure Name Priority Date/Time Associated Diagnosis Comments US ABDOMEN LIMITED LIVER Routine 10/20/2023 Elevated alkaline phosphatase level documented in this encounter Results * US Abdomen Limited Liver (10/20/2023) Anatomical Region Laterality Modality Abdomen, Liver Ultrasound us Deepika DECKER IMG US PROCEDURES Peggy l Result documented in this encounter Visit Diagnoses Diagnosis Elevated alkaline phosphatase level documented in this encounter Additional Health Concerns Assessment Noted Time PHQ-9 Depression Total Score: 0 10/13/19 24 10:16 AM EDT documented as of this encounter Care Teams Factory Assembler Relationship Specialty Start Date End Date Deepika Serna FNP PCP - General Family Medicine 04/15/22 12/23/23 Virginia Belcher DO [address] [place] [id number] PCP - General Family Medicine 12/24/23 documented as of this encounter
--- OUTSIDE RECORDS SUMMARY | 2024-05-18 09:45 | XMS_ITS | Encounter Summary ---
Author Organization [employer] Address [address] [place] [address] Care Team Providers Care Sheet Manufacturing Supervisor Name Role Phone Deepika Serna Primary Care Provider Unavailable Virginia Belcher DO Primary Care Provider [phone] Encounter Details Date Type Department Care Team (Late st Contact Info) Description 06/23/2023 Orders Only [facility] [address] [place] [address] Provider, MD Cristóbal Social History Tobacco Use Types Packs/Day Years [...] Master's degree (e.g., MA, MS, David, MEd, KITCHEN STEWARD, [place]) 06/23/2022 Comments Unknown Sex and Gender [...] Procedure Name Priority Date/Time Associated Diagnosis Comments TRANSTHORACIC ECHO (TTE) COMPLETE Routine 05/21/2023 6:59 PM EST documented in this encounter Results * Transthoracic echo (TTE) complete (05/21/2023 6:59 PM EST) Historical Provider MD [facility] ECHO PROCEDURES Final Result documented in this encounter Visit Diagnoses Not on filedocumented in this encounter Care Teams Sheet Manufacturing Supervisor Relationship Specialty Start Date End Date Deepika Serna FNP PCP - General Family Medicine 04/15/22 12/23/23 Virginia Belcher DO [address] [place] [id number] PCP - General Family Medicine 12/24/23 documented as of this encounter
== END 2024-05-18 09:26 | disposition home or self-care (01) ==
LOC: HO.MAMMO 09:25
PROVIDERS: PCP Family Medicine; Referring Provider Internal Medicine Medical Oncology; Visit Provider Internal Medicine Medical Oncology
DX: Z12.31 Encounter for screening mammogram for malignant neoplasm of breast (principal)
CPT/HCPCS: 77063; 77067

== ENCOUNTER → 2024-05-18 09:45 | Outpatient (BNV) | payer MEDICARE, OTHER, SELFPAY | PROVIDERS: PCP Family Medicine; Referring Provider Internal Medicine Medical Oncology; Visit Provider Internal Medicine | DX: Z12.31 Encounter for screening mammogram for malignant neoplasm of breast (principal) | CPT/HCPCS: 77063; 77067 ==

== ENCOUNTER 2025-02-16 10:14 | Outpatient (REF) | payer MEDICARE, OTHER, SELFPAY ==
[2025-02-16 10:46] LABS: Hematocrit 42.9 % (37.0-47.0); Hemoglobin 14.2 g/dl (12.0-16.0); Imm Gran Abs Auto 0.04 X10*3/uL (0.00-0.03); Imm Gran Pct Auto 0.4 % (0.0-0.4); Lymphocytes Absolute Auto 1.7 X10*3/uL (1.2-4.9); MANUAL DIFF FLAG NO; Mean Corpuscular HGB Conc 33.1 g/dl (31.0-35.0); Mean Corpuscular Hemoglobin 31.1 pg (27.0-33.0); Mean Corpuscular Volume 94.1 fL (80.0-98.0); NRBC Abs Auto 0.000 X10*3/uL (0.0-0.012); NRBC Pct Auto 0.0 /100WBC (0.0-0.2); Platelet Count 283 X10*3/uL (160-400); Red Blood Count 4.56 X10*6/uL (4.20-5.50); White Blood Count 9.3 X10*3/uL (4.8-10.8)
== END 2025-02-16 10:15 | disposition home or self-care (01) ==
LOC: HO.LAB 10:14
PROVIDERS: PCP Family Medicine; Visit Provider Internal Medicine Medical Oncology
DX: C50.919 Malignant neoplasm of unspecified site of unspecified female breast (principal)
CPT/HCPCS: 36415; 85025